=== PATIENT | female | born 1985 | race Asian ===

== ENCOUNTER 2018-09-29 21:57 | Emergency (ER) | payer BC ==
--- NOTE | 2018-09-29 22:07 | EDM.PDOC ---
ED HPI GENERAL MEDICAL PROBLEM - General Chief Complaint: General Stated Complaint: vomiting, dizziness Time Seen by Provider: 09/29/18 21:59 Source of Information: Reports: Patient History Limitations: Reports: No Limitations - History of Present Illness INITIAL COMMENTS - FREE TEXT/NARRATIVE: Patient is a 33-year-old female who presents to the emergency department with a complaint of nausea and vomiting. Patient is 24 weeks , has had an uncomplicated so far, and developed nausea, vomiting, weakness and dizziness today. Patient denies any abdominal pain, vaginal bleeding or fluid, fever, bowel changes, dysuria, shortness of breath, or chest pain. Onset: Today Duration: Hour(s): Quality: Reports: Other (No pain) Severity: Mild Improves with: Reports: None Worsens with: Reports: None Associated Symptoms: Reports: Nausea/Vomiting. Denies: Chest Pain, Fever/Chills , Shortness of Breath - Related Data Allergies Allergy/AdvReac Type Severity Reaction Status Date / Time No Known Allergies Allergy Verified 09/29/18 22:35 Home Meds: Home Meds Ondansetron [Zofran ODT] 4 mg PO Q6H #10 tab.dis 09/29/18 [Rx] PNV95/Ferrous Fumarate/FA [ Vitamin Tablet] 1 each PO DAILY 09/29/18 [ History] ED ROS GENERAL - Review of Systems Review Of Systems: ROS reveals no pertinent complaints other than HPI. Constitutional: Reports: Weakness, Fatigue HEENT: Reports: No Symptoms Respiratory: Reports: No Symptoms Cardiovascular: Reports: No Symptoms Endocrine: Reports: No Symptoms GI/Abdominal: Reports: Nausea, Vomiting. Denies: Hematemesis, Hematochezia : Reports: No Symptoms Musculoskeletal: Reports: No Symptoms Skin: Reports: No Symptoms Neurological: Reports: Dizziness Psychiatric: Reports: No Symptoms Hematologic/Lymphatic: Reports: No Symptoms Immunologic: Reports: No Symptoms ED EXAM - Physical Exam Exam: See Below Exam Limited By: No Limitations General Appearance: Alert, WD/WN, No Apparent Distress Eye Exam: Bilateral Eye: Normal Inspection Throat/Mouth: Normal Inspection, Normal Oropharynx, No Airway Compromise Head: Atraumatic, Normocephalic Neck: Normal Inspection Respiratory/Chest: No Respiratory Distress, Lungs Clear, Normal Breath Sounds, No Accessory Muscle Use, Chest Non-Tender Cardiovascular: Regular Rate, Rhythm, No Murmur GI/Abdominal Exam: Normal Bowel Sounds, Soft, Other ( 24 week) Back Exam: Normal Inspection. No: CVA Tenderness (L), CVA Tenderness (R) Extremities: Normal Inspection, No Pedal Edema Neurological: Alert, Oriented, CN II-XII Intact, Normal Cognition, No Motor/ Sensory Deficits Psychiatric: Normal Affect, Normal Mood Skin Exam: Warm, Dry, Intact, Normal Color, No Rash Lymphatic: No Adenopathy Course - Vital Signs Last Recorded V/S: Last Vital Signs Temp 97.2 F 09/29/18 22:01 Pulse 73 09/29/18 22:38 Resp 16 09/29/18 22:01 BP 116/57 L 09/29/18 22:38 Pulse Ox 99 09/29/18 22:01 - Orders/Labs/Meds Orders: Active Orders 24 hr Category Date Time Status Peripheral IV Care [RC] . DIRECTED Care 09/29/18 22:01 Active Dextrose 5%-0.9% NaCl [Dextrose 5%-Normal Saline] 1,000 Med 09/29/18 22:00 Ordered ml IV ASDIRECTED Sodium Chloride 0.9% [Saline Flush] Med 09/29/18 22:00 Ordered 10 ml FLUSH Q8HR PRN Peripheral IV Insertion Adult [OM.PC] Routine Oth 09/29/18 22:00 Ordered Medication Orders Dextrose/Sodium Chloride (Dextrose 5%-Normal Saline) 1,000 mls @ 999 mls/hr IV ASDIRECTED YANET Last Admin: 09/29/18 22:30 Dose: 999 mls/hr Sodium Chloride (Saline Flush) 10 ml FLUSH Q8HR PRN PRN Reason: keep vein open Last Admin: 09/29/18 22:10 Dose: 10 ml Labs: Laboratory Tests 09/29/18 09/29/18 Range/Units 10:15 10:15 WBC 12.15 H (5.00-10.00) 10^3/uL RBC 4.14 (3.80-5.50) 10^6/uL Hgb 12.7 (12.0-16.0) g/dL Hct 36.1 L (37.0-47.0) % MCV 87.2 (82.0-92.0) fL MCH 30.7 (27.0-31.0) pg MCHC 35.2 (32.0-36.0) g/dL RDW 12.9 (11.5-14.5) % Plt Count 236 (150-400) 10^3/uL MPV 9.5 (7.4-10.4) fL Immature Gran % (Auto) 0.4 (0.0-5.0) % Neut % (Auto) 78.3 H (50.0-70.0) % Lymph % (Auto) 12.9 L (20.0-40.0) % Atkinson % (Auto) 7.3 (2.0-8.0) % Eos % (Auto) 0.9 L (1.0-3.0) % Baso % (Auto) 0.2 (0.0-1.0) % Immature Gran # (Auto) 0.05 (0.00-0.50) 10^3/uL Neut # (Auto) 9.51 H (2.50-7.00) 10^3/uL Lymph # (Auto) 1.57 (1.00-4.00) 10^3/uL Atkinson # (Auto) 0.89 H (0.10-0.80) 10^3/uL Eos # (Auto) 0.11 (0.10-0.30) 10^3/uL Baso # (Auto) 0.02 (0.00-0.10) 10^3/uL Sodium 139 (136-145) mmol/L Potassium 3.0 L (3.3-5.3) mmol/L Chloride 104 (98-115) mmol/L Carbon Dioxide 24.8 (21.0-32.0) mmol/L Anion Gap 13.2 (5-15) mmol/L BUN 5 L (6-25) mg/dL Creatinine 0.49 L (0.51-1.17) mg/dL Est Cr Clr Drug Dosing 127.95 mL/min Estimated GFR (MDRD) > 60 mL/min Glucose 85 (75 - 99) mg/dL Calcium 8.9 (8.7-10.3) mg/dL Total Bilirubin 0.2 (0.2-1.0) mg/dL AST 16 (15-37) U/L ALT 19 (12-78) U/L Alkaline Phosphatase 65 (46-116) IU/L Total Protein 7.0 (6.4-8.2) g/dL Albumin 2.73 L (3.00-4.80) g/dL Meds: Medications Generic Name Dose Route Start Last Admin Trade Name Freq PRN Reason Stop Dose Admin Dextrose/Sodium Chloride 1,000 mls @ 999 mls/hr 09/29/18 22:00 09/29/18 22:30 Dextrose 5%-Normal Saline IV 999 mls/hr ASDIRECTED YANET Administration Sodium Chloride 10 ml 09/29/18 22:00 09/29/18 22:10 Saline Flush FLUSH 10 ml Q8HR PRN Administration keep vein open Discontinued Medications Generic Name Dose Route Start Last Admin Trade Name Freq PRN Reason Stop Dose Admin Ondansetron HCl 4 mg 09/29/18 21:59 09/29/18 22:16 Zofran IVPUSH 09/29/18 22:00 4 mg ONETIME ONE Administration - Re-Assessments/Exams Free Text/Narrative Re-Assessment/Exam: 09/29/18 22:53 Patient afebrile, vital signs stable, nausea resolved. Patient given 1 L D5 normal saline and 4 mg Zofran. Mild hypokalemia will be addressed with potassium rich foods. 09/29/18 22:54 Departure - Departure Time of Disposition: 22:55 Disposition: Home, Self-Care 01 Condition: Good Clinical Impression: Hyperemesis gravidarum - Discharge Information Instructions: Eating Plan for Hyperemesis Gravidarum, Hyperemesis Gravidarum Forms: ED Department Discharge Additional Instructions: Follow-up with [facility]. Return to emergency department if symptoms continue or worsen. Consume potassium rich foods. Take medication as prescribed - My Orders Last 24 Hours: My Active Orders 09/29/18 22:00 Dextrose 5%-0.9% NaCl [Dextrose 5%-Normal Saline] 1,000 ml IV ASDIRECTED Sodium Chloride 0.9% [Saline Flush] 10 ml FLUSH Q8HR PRN Peripheral IV Insertion Adult [OM.PC] Routine 09/29/18 22:01 Peripheral IV Care [RC] . DIRECTED - Assessment/Plan Last 24 Hours: My Active Orders 09/29/18 22:00 Dextrose 5%-0.9% NaCl [Dextrose 5%-Normal Saline] 1,000 ml IV ASDIRECTED Sodium Chloride 0.9% [Saline Flush] 10 ml FLUSH Q8HR PRN Peripheral IV Insertion Adult [OM.PC] Routine 09/29/18 22:01 Peripheral IV Care [RC] . DIRECTED Assessment:: Hyperemesis gravidarum Plan: Follow-up with PCP in 24-48 hours
[2018-09-29] MEDS: Sodium Chloride 0.9% 10 ML Syringe FLUSH PRN (22:10)
[2018-09-29] MEDS: Ondansetron 4 MG/2 ML SDV IVPUSH ONE (22:16)
[2018-09-29] MEDS: Dextrose 5%-0.9% NaCl 1,000 ML IV SCH (22:30)
[2018-09-29 22:43] LABS: ANION GAP 13.2 mmol/L (5-15); CHLORIDE,CL 104 mmol/L (98-115); SODIUM,NA 139 mmol/L (136-145)
[2018-09-29] MEDS: Ondansetron 4 MG Tab.DIS PO ONE (23:27)
== END 2018-09-29 23:40 | disposition home or self-care (01) ==
LOC: KA.ED 21:57
DX: O21.0 Mild hyperemesis gravidarum (principal); Z3A.24 24 weeks gestation of pregnancy
CPT/HCPCS: 36415; 80053; 85025; 96361; 96374; 99284; A9270; J2405; J7042